=== PATIENT | female | born 2005 | race Caucasian/White ===

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

== ENCOUNTER 2023-06-04 11:06 | Outpatient (REF) | payer BC, SELFPAY ==
[2023-06-05 13:07] LABS: Chlamydia Result Negative (Negative); GC Result Negative (Negative)
== END 2023-06-04 11:07 | disposition home or self-care (01) ==
LOC: LBN 11:06
PROVIDERS: PCP Student in an Organized Health Care Education/Training Program; Visit Provider Nurse Practitioner Women's Health
DX: Z11.3 Encounter for screening for infections with a predominantly sexual mode of transmission (principal); R82.79 Other abnormal findings on microbiological examination of urine
CPT/HCPCS: 87491; 87591

== ENCOUNTER 2023-09-06 15:04 | Outpatient (REF) | payer BC, SELFPAY | END 2023-09-06 15:05 | disposition home or self-care (01) | LOC: LBN 15:04 | PROVIDERS: PCP Student in an Organized Health Care Education/Training Program; Visit Provider Nurse Practitioner Family | DX: J02.9 Acute pharyngitis, unspecified (principal) | CPT/HCPCS: 87077; 87070 ==

== ENCOUNTER 2024-07-21 14:03 | Outpatient (CLI) | payer BC, SELFPAY ==
--- NOTE | 2024-07-21 13:45 | DI.RAD_ITS ---
Exam(s) XR CHEST 2V PA LATERAL EXAM: XR CHEST 2V PA LATERAL CLINICAL HISTORY: eval pna, cough, R05.9. TECHNIQUE: 2D digital imaging was performed. COMPARISON: No exams were available for comparison FINDINGS: 2 views: Heart size is normal. The mediastinum is not widened. Lungs are clear. No infiltrates nor pleural effusions. IMPRESSION: No acute pulmonary findings. DATA REPOSITORY: RADIATION DOSE DELIVERED:
== END 2024-07-21 14:23 ==
LOC: DI 14:04
PROVIDERS: PCP Nurse Practitioner Family; Visit Provider Nurse Practitioner Family
DX: R05.9 Cough, unspecified (principal)
CPT/HCPCS: 71046

== ENCOUNTER 2024-08-03 14:15 | Emergency (ER) | payer BC, SELFPAY ==
--- NOTE | 2024-08-03 14:15 | DI.RAD_ITS ---
Exam(s) XR WRIST LT COMPLETE EXAM: XR WRIST LT COMPLETE CLINICAL HISTORY: pain s/p fall. TECHNIQUE: 2D digital imaging was performed. Three views. COMPARISON: No exams were available for comparison FINDINGS: BONES: No acute fracture is present. No bony destructive lesion is seen. JOINTS: The carpal bones are normally aligned. SOFT TISSUE: Mild soft tissue swelling. IMPRESSION: Mild soft tissue swelling. No evidence of fracture. DATA REPOSITORY: RADIATION DOSE DELIVERED:
[2024-08-03 14:16] VITALS: BP 124/75; PULSE 78; RESP 14; TEMP 36.8; O2SAT 97
--- NOTE | 2024-08-03 14:29 | ED.GENADUL_ITS ---
Discharge Plan Disposition Patient Disposition: Home Condition: Stable Discharge Details Clinical Impression: Left wrist sprain Primary Care Provider: Kevin Berrios ED Provider: Eliseo Crum Home Meds and New Rx's Prescriptions: Continued (DME) POCKET CHAMBER Spacer See Rx Instructions .ROUTE .MEDSUPPLY Qty: 1 0RF Rx Instructions: As directed sertraline 100 mg tablet 100 mg PO DAILY Qty: 90 1RF albuterol sulfate 90 mcg/actuation HFA aerosol inhaler 2 puff inhalation Q6H PRN (Reason: shortness of breath or wheezing) Qty: 8.5 0RF Discharge Instructions Additional Instructions: I do not see anything of concern on your x-ray. If the radiologist sees any broken bones I will call you. Wear the splint until pain-free. If you are not improving in a week follow-up with your primary care provider You can take 1000 mg of acetaminophen and 600 mg of ibuprofen every 6 hours as needed. If you feel more ill or have severe worsening pain return to the emergency department for reevaluation HPI General Mode of arrival: ambulatory . Date/Time Provider Initiated Documentation: 08/03/24 14:19 . Limitations to Documentation: no limitations . Information obtained by: patient . History of Present Illness 18 year old F presents to the emergency department with the chief complaint of left wrist pain s/p fall snowboarding, described as moderate, Quality is described as aching, and is localized to the left and upper extremity. Patient reports no radiation. Patient started experiencing this hour(s) (2) and it has been constant. Rest improves symptom(s), Movement worsens symptoms . Patient notes no other symptoms.. Patient did receive the following treatments prior to arrival, none Related Data Home Medications ?Medication ?Instructions ?Recorded ?Confirmed inhalational spacing device #1 ea 09/29/19 08/03/24 (POCKET CHAMBER spacer) sertraline 100 mg tablet 100 mg PO DAILY #90 tabs 05/26/24 08/03/24 albuterol sulfate 90 mcg/actuation 2 puff inhalation Q6H PRN 07/21/24 08/03/24 aerosol inhaler shortness of breath or wheezing #8.5 grams Previous Rx's ?Medication ?Instructions ?Recorded inhalational spacing device #1 ea 09/29/19 (POCKET CHAMBER spacer) sertraline 100 mg tablet 100 mg PO DAILY #90 tabs 05/26/24 albuterol sulfate 90 mcg/actuation 2 puff inhalation Q6H PRN 07/21/24 aerosol inhaler shortness of breath or wheezing #8.5 grams Allergies Allergy/AdvReac Type Severity Reaction Status Date / Time amoxicillin Allergy Intermediate RASH Verified 08/03/24 14:18 General Stated Complaint: Orthopedic ROSALBA: 4 Review of Systems All systems reviewed & are unremarkable except as noted in HPI and below Constitutional Constitutional: Denies chills, Denies fever(s) and Denies weakness Cardiovascular Cardiovascular: Denies chest pain and Denies dyspnea Respiratory Respiratory: Denies dyspnea Gastrointestinal Gastrointestinal: Denies abdominal pain, Denies nausea and Denies vomiting Neurologic Neurologic: Denies weakness Exam Const General: no acute distress Orientation: alert HENMT Head: normal to inspection Ears: external ears normal General nose exam: external nose normal Mouth: moist mucous membranes Eyes General: appearance normal, both eyes and all related structures Neck Neck: normal visual inspection Resp Effort & Inspection: normal respiratory effort and able to speak in complete sentences Cardio Rate: regular rate Skin General skin exam: no rashes or lesions noted Neuro General: patient alert and patient oriented x3 Extrem General: normal to inspection and capillary refill normal Psych Mental Status: mental status grossly normal Course Vital Signs Vital signs: Vital Signs Temperature 36.8 C 08/03/24 14:16 Pulse 78 08/03/24 14:16 Respiratory Rate 14 08/03/24 14:16 Blood Pressure 124/75 08/03/24 14:16 Pulse Oximetry 97 08/03/24 14:16 Temperature 36.8 C 08/03/24 14:16 Temperature Source Oral 08/03/24 14:16 Pulse 78 08/03/24 14:16 Respiratory Rate 14 08/03/24 14:16 Respiratory Effort Normal 08/03/24 14:19 Blood Pressure 124/75 08/03/24 14:16 Blood Pressure Position Sitting 08/03/24 14:16 Pulse Oximetry 97 08/03/24 14:16 Oxygen Delivery Method Room Air 08/03/24 14:16 Oxygen Flow Rate 0 08/03/24 14:16 Pain Level 5 08/03/24 14:16 Lab/Test Results Lab/Test Results: POC- Test(urine) Negative Medical Decision Making 18-year-old female who denies any significant past medical history comes in with left wrist pain after falling while snowboarding. She says she was wearing a helmet, lost control and fell landing on her left wrist. She had no loss of consciousness, she denies any head pain, neck pain, back pain, chest or abdomen pain. She localizes the pain to the left wrist on the radial surface. She has full range of motion of the wrist but with pain. There is no visible palpable deformity. No snuffbox tenderness. No pain to the hand or fingers with intact sensation and cap refill. Full obtain x-rays to evaluate for fracture. Patient's x-ray on my read is negative, will treat as a sprain with a wrist splint and advised to wear this until pain-free. Given the turnaround times over an hour, I will call her if they see anything of note. She will follow-up with her PCP in improving in a week. 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) Mild persistent asthma without complication (Acute 05/30/17) Coarctation of aorta (Acute 03/03/13) Bicuspid aortic valve (Acute 03/03/13) Medical History Dysmenorrhea COVID-19 virus infection (10/10/21) Concussion 06/13 Pneumonia Bronchiolitis Surgical History coarctation repair Family History Father Essential hypertension Hyperlipidemia Diabetes Hypertension Maternal Grandmother Neoplasm breast Breast cancer Essential hypertension Hyperlipidemia Maternal Grandfather Heart disease Diabetes Hyperlipidemia Hypertension Mother Hyperlipidemia Depression Sister Depression Paternal Grandmother Hypertension Paternal Grandfather Heart disease Social History Smoking/Tobacco Use Status: Never Second Hand Exposure: No Smoking risk assessment performed?: Yes Alcohol Intake: never Drug use: Never Substance use type: does not use Adopted: No Caregiver/Support person: No Foster care: No Household members: significant other Housing: house Number of Children: 0 Communication Needs: None Education Level: high school Do you need help understanding health information?: Never current occupation: banking management consulting manager Pets and animals: Yes Sexually active: Yes Do you think of yourself as: straight/heterosexual Current gender identity: female What is your relationship status?: living with partner How often do you talk on the phone with friends or family?: three or more times per week How often do you get together with friends or relatives?: once per week Do you belong to any clubs or organized social groups?: yes Panel score (0-1 are the most socially isolated patients): 3 What type of physical activity do you participate in: other Details: spin class Duration: 45-60 minutes/day Frequency: 1-2 times per week Myah/Bahai: Confucianism Special myah needs: No Agree to transfusion: Yes Seatbelt use: always Helmet use: Yes Helmet use: always Drive intox or ride w/intox local delivery driver: No Firearms in home: Yes Firearms unloaded and locked: Yes Do you feel safe at home: Yes Do you feel safe in your relationship?: Yes Female Reproductive History Menstrual Age of Menarche: 11 control method: condoms History History 0 Para Hx # Term Pregnancies Multiple births Hx # Pregnancies Ectopic pregnancies AB induced Hx Number of Living Children AB spontaneous
--- NOTE | 2024-08-03 15:40 | DI.VRAD_ITS ---
PROCEDURE INFORMATION: Exam: XR Left Wrist Exam date and time: 08/03/2024 2:35 PM Age: 18 years old Clinical indication: Injury or trauma; Other: Snowboarding accident; Blunt trauma (contusions or hematomas); Wrist; Left TECHNIQUE: Imaging protocol: Radiologic exam of the left wrist. Views: 3 or more views. COMPARISON: No relevant prior studies available. FINDINGS: Bones/joints: Bone mineralization is age-appropriate. There is no evidence of fracture. No evidence of dislocation. The joint spaces are adequately preserved; no significant degenerative narrowing and no bony erosion seen. Soft tissues: No radiopaque foreign body present. There is soft tissue swelling present. IMPRESSION: 1. No acute osseous abnormality. 2. There is soft tissue swelling present. Dictated and Authenticated by: Leonidas Burroughs MD. Ordering:JEREMY Gomes MD
== END 2024-08-03 15:15 | disposition home or self-care (01) ==
PROVIDERS: Emergency Provider Emergency Medicine; PCP Nurse Practitioner Family
DX: S63.502A Unspecified sprain of left wrist, initial encounter (principal); W00.0XXA Fall on same level due to ice and snow, initial encounter; Y93.23 Activity, snow (alpine) (downhill) skiing, snowboarding, sledding, tobogganing and snow tubing; Y92.838 Other recreation area as the place of occurrence of the external cause
CPT/HCPCS: 81025; 99284; 73110; 99283

== ENCOUNTER 2025-03-13 18:25 | Outpatient (REF) | payer OTHER, SELFPAY ==
[2025-03-13 21:06] LABS: HCT 44.4 % (36.0-46.0); HGB 15.0 g/dL (11.2-15.7); MCH 30.0 pg (27.0-33.0); MCHC 33.8 % (32.0-36.0); MCV 89 fL (80-95); MPV 10.9 fL (8.0-11.0); Platelet Count 352 10^3/uL (130-400); RBC 5.00 10^6/uL (3.93-5.22); RDW 11.9 % (11.7-14.6); RDW-SD 38.6 fL; WBC 12.38 10^3/uL (4.4-10.8)
[2025-03-13 21:22] LABS: Anion Gap 9.9 mmol/L (3-11); BUN 16 mg/dL (7-18); CO2 29.1 mmol/L (21.0-32.0); Calcium 9.5 mg/dL (8.5-10.1); Chloride 103 mmol/L (98-107); Estimated GFR 130.88 (mL/min/1.73m2); Glucose 108 mg/dL (74-106); Potassium 3.4 mmol/L (3.5-5.1); Sodium 142 mmol/L (136-145); TSH (W/Ref FT4) 1.16 uIU/mL (0.36-3.74)
[2025-03-14 10:32] LABS: Lab Add On Test DONE
[2025-03-14 10:49] LABS: Hemoglobin A1C 5.2 % (<5.7)
== END 2025-03-13 18:26 | disposition home or self-care (01) ==
LOC: LBN 18:25
PROVIDERS: PCP Nurse Practitioner Family; Visit Provider Nurse Practitioner Family
DX: F41.9 Anxiety disorder, unspecified (principal); R63.5 Abnormal weight gain; R73.9 Hyperglycemia, unspecified
CPT/HCPCS: 80048; 85027; 83036; 84443

== ENCOUNTER 2025-03-19 13:57 | Outpatient (REF) | payer OTHER, SELFPAY | END 2025-03-19 13:58 | disposition home or self-care (01) | LOC: LBN 13:57 | PROVIDERS: PCP Nurse Practitioner Family; Visit Provider Obstetrics & Gynecology | DX: R30.0 Dysuria (principal) | CPT/HCPCS: 87077; 87086; 87186 ==

== ENCOUNTER 2025-03-19 17:18 | Emergency (ER) | payer OTHER, SELFPAY ==
[2025-03-19 17:20] VITALS: BP 138/87; PULSE 90; RESP 14; TEMP 37.9; O2SAT 96
[2025-03-19 17:28] VITALS: BP 138/87; PULSE 90; RESP 14; TEMP 37.9; O2SAT 96
[2025-03-19 17:44] LABS: Glucose Negative (Negative)
[2025-03-19 18:00] LABS: Abs Immature Grans 0.07 10^3/uL (0.0-0.06); HCT 42.1 % (36.0-46.0); HGB 14.4 g/dL (11.2-15.7); Immature Grans % 0.4 %; MCH 29.9 pg (27.0-33.0); MCHC 34.2 % (32.0-36.0); MCV 87 fL (80-95); MPV 10.2 fL (8.0-11.0); Platelet Count 328 10^3/uL (130-400); RBC 4.82 10^6/uL (3.93-5.22); RDW 11.8 % (11.7-14.6); RDW-SD 37.6 fL; WBC 16.82 10^3/uL (4.4-10.8)
[2025-03-19] MEDS: Ibuprofen 600 MG TAB PO (18:00)
--- NOTE | 2025-03-19 18:00 | DI.CT_ITS ---
Exam(s) CT RENAL COLIC WO EXAM: CT RENAL COLIC WO CLINICAL HISTORY: R. flank and R. groin pain, recent UTI. TECHNIQUE: Imaging Protocol: Axial computed tomography images with coronal and sagittal reformatted images were created and reviewed. COMPARISON: No exams were available for comparison FINDINGS: ABDOMEN: Lung Bases: Normal where visualized. Liver: Normal density. No measurable mass. Gallbladder and biliary tract: Cholelithiasis. No biliary ductal dilatation. Pancreas: Normal density, no abnormal calcifications or inflammatory process. Spleen: Normal. Kidneys: Normal size, contour and axis.No radiodense stones or obstructive uropathy. No masses seen. Adrenal glands: No mass is seen. Lymph nodes: Within normal limits. Abdominal Aorta: Abdominal portion non-dilated. PELVIS: Bladder:Symmetric distention, no gross wall thickening. Bowel: No obstruction or bowel wall thickening. There is no evidence of appendicitis. Peritoneal cavity: No ascites, collection or mesenteric inflammatory response. No free air. Reproductive organs: There are bilateral ovarian cysts. The largest is on the left ovary and measures 2 cm. Bones: Within normal limits. There is left sided spondylolysis at L5 without spondylolisthesis. Soft Tissues: Within normal limits. IMPRESSION: 1. There is no evidence of nephrolithiasis or hydronephrosis. 2. Cholelithiasis. No biliary ductal dilatation or CT evidence to suggest acute cholecystitis. 3. No evidence of appendicitis. 4. Bilateral follicular ovarian cysts. The largest is on the left and measures 2 cm. RADIATION DOSE DELIVERED: 652.65mGy.cm Total DLP DATA REPOSITORY: All CT scans at this facility are submitted to the National Radiology Data Registry (NRDR) Dose Index Registry (DIR) with the [employer] (A[employer]). RADIATION OPTIMIZATION: All CT scans at this facility use at least one of these dose optimization techniques: automated exposure control; mA and/or kV adjustment per patient size (includes targeted exams where dose is matched to clinical indication); or iterative reconstruction.
[2025-03-19 18:07] LABS: C & S Indicated? Yes; RBC >50 HPF (0-2); WBC 20-50 HPF (0-5)
[2025-03-19 18:15] LABS: ALT 43 U/L (14-59); AST 20 U/L (15-37); Albumin 4.0 g/dL (3.4-5.0); Alkaline Phosphatase 90 U/L (46-116); Anion Gap 10.0 mmol/L (3-11); BUN 13 mg/dL (7-18); Bilirubin, Total 0.3 mg/dL (0.2-1.0); CO2 28.0 mmol/L (21.0-32.0); Calcium 9.4 mg/dL (8.5-10.1); Chloride 101 mmol/L (98-107); Estimated GFR 126.11 (mL/min/1.73m2); Glucose 99 mg/dL (74-106); Lipase 36 U/L (<78); Magnesium 1.9 mg/dL (1.8-2.4); Potassium 3.6 mmol/L (3.5-5.1); Sodium 139 mmol/L (136-145); Total Protein 8.0 g/dL (6.4-8.2)
--- NOTE | 2025-03-19 18:20 | ED.GENADUL_ITS ---
Discharge Plan Disposition Patient Disposition: Home Condition: Stable Discharge Details Clinical Impression: Pyelonephritis, Cholelithiasis, Cyst of left ovary Primary Care Provider: Kevin Berrios ED Provider: Pooja Nichols Home Meds and New Rx's Prescriptions: New cephalexin 500 mg capsule 500 mg PO QID 5 Days Qty: 20 0RF No Action (DME) POCKET CHAMBER Spacer See Rx Instructions .ROUTE .MEDSUPPLY Qty: 1 0RF Rx Instructions: As directed ceftriaxone 1 gram recon soln 1 g IM DAILY 1 Days Qty: 1 0RF cephalexin 500 mg capsule 500 mg PO Q8H 7 Days Qty: 21 0RF phenazopyridine [Pyridium] 200 mg tablet 200 mg PO Q8H Qty: 6 0RF albuterol sulfate 90 mcg/actuation HFA aerosol inhaler 2 puff inhalation Q6H PRN (Reason: shortness of breath or wheezing) Qty: 8.5 0RF omeprazole 20 mg capsule,delayed release(DR/EC) 20 mg PO DAILY Qty: 90 0RF sertraline 100 mg tablet 100 mg PO DAILY Qty: 90 1RF Discharge Instructions Instructions: Urinary Tract Infection, Adult ED Additional Instructions: You were seen in the emergency department today for evaluation of right flank pain in the setting of a recently diagnosed urinary tract infection. In our department had a full physical examination performed, had laboratory studies that showed some blood and signs of infection in your urine as well as an elevated white blood cell count. You had a CT scan that did not show any evidence of kidney stones or other abnormalities, and likely have a kidney infection. I have made some changes to your oral antibiotic regimen, and provided you with a prescription for the remainder of the medicines that you will need. Your new regimen is cephalexin, 500 mg 4 times per day (every 6 hours) for 10 days. Between my prescription and the one you got this morning and have already picked up you should have enough tablets to do that. Please t bill all of the medication until it is gone, even if you start to feel better. You should start this medication tomorrow morning when you wake up. You can continue to use the Pyridium for pain as well as Tylenol and ibuprofen. Please follow-up with your primary care provider in the next few days to discuss this visit and any symptoms that change, worsen, or persist. Thank you for allowing us to be part of your care. HPI General Mode of arrival: ambulatory . Date/Time Provider Initiated Documentation: 03/19/25 17:27 . Limitations to Documentation: no limitations . Information obtained by: patient, family and old records reviewed . HPI Narrative: This is a 19-year-old female patient with a past medical history significant for asthma, aortic coarctation, bicuspid aortic valve, and a recent diagnosis of urinary tract infection who is presenting for evaluation of right flank and abdominal pain. The patient reports that she started to develop urinary symptoms including dysuria and frequency on Sunday. She has never had a urinary tract infection before and tried managing her symptoms with [id number] medications without improvement. She was seen by her [facility] office today, and had a urinalysis concerning for infection. She received a dose of intramuscular ceftriaxone and a prescription for cephalexin, which she was supposed to take tomorrow but has already picked up. She was also provided with Pyridium for symptomatic management. This afternoon she reports that she developed right sided flank pain, and right groin pain. She was concerned about the new symptom and presented for evaluation. She has been tolerating oral intake, has not had nausea or vomiting, did have an episode of diarrhea without blood. Related Data Home Medications ?Medication ?Instructions ?Recorded ?Confirmed inhalational spacing device #1 ea 09/29/19 03/19/25 (POCKET CHAMBER spacer) albuterol sulfate 90 mcg/actuation 2 puff inhalation Q 6H PRN 07/21/24 03/19/25 aerosol inhaler shortness of breath or wheez ing #8.5 grams sertraline 100 mg tablet 100 mg PO DAILY #90 tabs 04/2003/19/25 omeprazole 20 mg capsule,delayed 20 mg PO DAILY #90 ca ps 03/13/25 03/19/25 release ceftriaxone 1 gram solution for 1 g IM DAILY 1 day #1 ea 03/19/25 03/19/25 injection cephalexin 500 mg capsule 500 mg PO Q8H 7 days #21 cap s 03/19/25 03/19/25 cephalexin 500 mg capsule 500 mg PO QID 5 days #20 cap s 03/19/25 phenazopyridine 200 mg tablet 200 mg PO Q8H 6 doses #6 tabs 03/19/25 03/19/25 (Pyridium) Previous Rx's ?Medication ?Instructions ?Recorded inhalational spacing device #1 ea 09/29/19 (POCKET CHAMBER spacer) albuterol sulfate 90 mcg/actuation 2 puff inhalation Q 6H PRN 07/21/24 aerosol inhaler shortness of breath or wheez ing #8.5 grams sertraline 100 mg tablet 100 mg PO DAILY #90 tabs 04/20 omeprazole 20 mg capsule,delayed 20 mg PO DAILY #90 ca ps 03/13/25 release ceftriaxone 1 gram solution for 1 g IM DAILY 1 day #1 ea 03/19/25 injection cephalexin 500 mg capsule 500 mg PO Q8H 7 days #21 cap s 03/19/25 cephalexin 500 mg capsule 500 mg PO QID 5 days #20 cap s 03/19/25 phenazopyridine 200 mg tablet 200 mg PO Q8H 6 doses #6 tabs 03/19/25 (Pyridium) Allergies Allergy/AdvReac Type Severity Reaction Status Date / Time amoxicillin Allergy Intermediate RASH Verified 03/19/25 17:28 General Stated Complaint: FlankPain ROSALBA: 3 Exam Narrative Exam Narrative: Gen: Awake and alert, in no apparent distress HEENT: Non-icteric sclera Neck: Supple Lungs: No apparent respiratory distress, normal respiratory effort. CV: Appears well perfused, strong distal pulses Abdomen: Non-distended, tenderness to palpation in the right groin and suprapubic region, no rigidity, rebound, or guarding. Right CVA tenderness is present MSK: Moves 4 extremities without apparent limitation in ROM Skin: Visualized skin without rashes, cyanosis. Neuro: Normal Gait, no obvious focal deficits or facial asymmetry. Speaks in full, clear sentences. Psych: Appropriate for situation. Course Vital Signs Vital signs: Vital Signs Temperature 37.9 C H 03/19/25 17:20 Pulse 90 03/19/25 17:20 Respiratory Rate 14 03/19/25 17:20 Blood Pressure 138/87 03/19/25 17:20 Pulse Oximetry 96 03/19/25 17:20 Temperature 37.9 C H 03/19/25 17:28 Temperature Source Oral 03/19/25 17:28 Pulse 90 03/19/25 17:28 Respiratory Rate 14 03/19/25 17:28 Blood Pressure 138/87 03/19/25 17:28 Blood Pressure Position Sitting 03/19/25 17:28 Pulse Oximetry 96 03/19/25 17:28 Oxygen Delivery Method Room Air 03/19/25 17:28 Oxygen Flow Rate 0 03/19/25 17:28 Pain Level 5 03/19/25 17:28 Lab/Test Results Lab/Test Results: 03/19/25 17:20 Urine - Reflex from Ua Urine Culture - Pending Laboratory Tests Range/Units 03/19/25 03/19/25 17:20 17:54 WBC (4.4-10.8) 10^3/uL 16.82 H RBC (3.93-5.22) 10^6/uL 4.82 Hgb (11.2-15.7) g/dL 14.4 Hct (36.0-46.0) % 42.1 MCV (80-95) fL 87 MCH (27.0-33.0) pg 29.9 MCHC (32.0-36.0) % 34.2 RDW (11.7-14.6) % 11.8 Plt Count (130-400) 10^3/uL 328 MPV (8.0-11.0) fL 10.2 Immature Gran % % 0.4 Neutrophils % % 61.5 Lymphocytes % % 28.1 Monocytes % % 8.0 Eosinophils % % 1.5 Basophils % % 0.5 Nucleated RBC % (0.0-0.3) % 0.0 Absolute Neutrophils (1.2-6.7) 10^3/uL 10.34 H Absolute Lymphocytes (1.2-3.4) 10^3/uL 4.73 H Absolute Monocytes (0.1-0.8) 10^3/uL 1.35 H Absolute Eosinophils (0.0-0.7) 10^3/uL 0.25 Absolute Basophils (0.0-0.2) 10^3/uL 0.08 Urine Color (Yellow) Yellow Urine Clarity (Clear) Clear Urine pH (5-8) 6.5 Ur Specific [place] (1.005-1.025) 1.025 Urine Protein (Neg-Trace) mg/dL >=300 H Urine Ketones (Negative) mg/dL Negative Urine Blood (Negative) Large H Urine Nitrite (Negative) Negative Urine Bilirubin (Negative) Negative Urine Urobilinogen (Up to 0.2) mg/dL 0.2 Ur Leukocyte Esterase (Negative) Trace H Urine RBC (0-2) HPF >50 H Urine WBC (0-5) HPF 20-50 H Ur Epithelial Cells (Negative) HPF Rare Urine Crystals (Negative) HPF Negative Urine Bacteria (Negative) HPF Many Urine Casts (Negative) LPF Negative Urine Mucus (Negative) Negative Urine Other (Negative) Rare Renal Ur Culture Indicated? Yes Urine Glucose (Negative) mg/dL Negative POC- Test(urine) Negative Medical Decision Making This is a 19-year-old female patient presenting for evaluation of right flank pain and right lower quadrant abdominal pain in the setting of a recently diagnosed urinary tract infection. My differential includes, but is not limited to, urinary pathology including UTI, nephrolithiasis. Also considered gastritis/PUD, gastroenteritis, pancreatitis, cholecystitis and gallbladder pathology, hepatitis, appendicitis, diverticulitis, small bowel obstruction. Considered mesenteric ischemia, aortic pathology, though this is less concerning based on the patient's history and physical exam. Considered ectopic , PID/TOA, ovarian cyst, ovarian torsion. We will obtain laboratory studies to include CBC, CMP, magnesium, urinalysis and [id number] test. Given the reassuring abdominal examination I feel that an indication for imaging would be the presence of hematuria which may represent infected stone. - I reviewed the patient's laboratory studies, which shows a leukocytosis to 16, no anemia or thrombocytopenia. Chemistry panel shows no electrolyte derangements, evidence of kidney dysfunction or liver disease. Lipase is low, but the urinalysis does show large blood and pyuria, and we obtained a Noncon CT abdomen pelvis with renal stone protocol. test negative. This was reviewed by myself as well as the radiologist, who notes no obstructive renal stones or other uropathy, a normal-appearing appendix, and an incidentally noted left ovarian cyst and presence of cholelithiasis. These findings were all shared with the patient, and given the concern for pyelonephritis I do feel it is reasonable to make some small changes to her cephalexin regimen. I provided her with enough additional tablets to be able to take 500 mg 4 times daily for the next 10 days. At this time, the patient has had a full medical evaluation and is safe for discharge to home. They are hemodynamically stable, ambulatory, and tolerating PO. They are understanding of the follow-up plan and return precautions. They left our facility without incident. 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) Mild persistent asthma without complication (Acute 05/30/17) Coarctation of aorta (Acute) Bicuspid aortic valve (Acute 03/03/13) Medical History Dysmenorrhea COVID-19 virus infection (10/10/21) Concussion 06/13 Pneumonia Bronchiolitis Surgical History coarctation repair Family History Father Essential hypertension Hyperlipidemia Diabetes Hypertension Maternal Grandmother Neoplasm breast Breast cancer Essential hypertension Hyperlipidemia Maternal Grandfather Heart disease Diabetes Hyperlipidemia Hypertension Mother Hyperlipidemia Depression Sister Depression Paternal Grandmother Hypertension Paternal Grandfather Heart disease Social History Smoking/Tobacco Use Status: Never Second Hand Exposure: No Smoking risk assessment performed?: Yes Alcohol Intake: never Drug use: Never Substance use type: does not use Adopted: No Caregiver/Support person: No Foster care: No Household members: significant other Housing: house Number of Children: 0 Communication Needs: None Education Level: high school Do you need help understanding health information?: Never current occupation: banking center manager Pets and animals: Yes Sexually active: Yes Do you think of yourself as: straight/heterosexual Current gender identity: female What is your relationship status?: living with partner How often do you talk on the phone with friends or family?: three or more times per week How often do you get together with friends or relatives?: once per week Do you belong to any clubs or organized social groups?: yes Panel score (0-1 are the most socially isolated patients): 3 What type of physical activity do you participate in: other Details: spin class Duration: 45-60 minutes/day Frequency: 1-2 times per week Myah/Rastafari: Gnosticist Special myah needs: No Agree to transfusion: Yes Seatbelt use: always Helmet use: Yes Helmet use: always Drive intox or ride w/intox tank wagon driver: No Firearms in home: Yes Firearms unloaded and locked: Yes Do you feel safe at home: Yes Do you feel safe in your relationship?: Yes Female Reproductive History Menstrual Age of Menarche: 11 control method: condoms History History 0 Para Hx # Term Pregnancies Multiple births Hx # Pregnancies Ectopic pregnancies AB induced Hx Number of Living Children AB spontaneous
[2025-03-19 18:23] VITALS: BP 132/74; PULSE 94; RESP 18; O2SAT 96
[2025-03-19 19:47] VITALS: BP 133/71; PULSE 70; TEMP 36.5; O2SAT 97
== END 2025-03-19 19:58 | disposition home or self-care (01) ==
PROVIDERS: Emergency Provider Emergency Medicine; PCP Nurse Practitioner Family
DX: N10 Acute pyelonephritis (principal); K80.20 Calculus of gallbladder without cholecystitis without obstruction; N83.02 Follicular cyst of left ovary
CPT/HCPCS: 36415; 80053; 81025; 83690; 87077; 99284; 74176; 81003; 81015; 83735; 85025; 87086; 87186

== ENCOUNTER 2025-08-04 11:25 | Outpatient (REF) | payer OTHER, SELFPAY ==
--- NOTE | 2025-08-04 11:15 | PAPFT_PTH ---
PATIENT: Jacinda Quiñones LOC: [facility] U#:[id number] AGE/SX: 19/F ROOM: RE08/04/[address]: Anai Crum NP : 2005 BED: DIS: 08/04/2025 SPEC #: [id number] RECD: 08/04/25 12:52 STATUS: MAJORHalley OWEN #: [id number] MONTY: 08/04/25 11:[address]: Anai Crum NP DEPT: [facility] Cytology RECD BY: Josefa Steele ENTERED: 08/04/25 12:53 SP TYPE: PAPFT OTHR DR: Kevin Chávez DNP Tissues: 1 - CX/ENDOCX FOR PAP SMEARS Procedures: PAP THIN PREP/[facility] Screening Comments: [id number]
== END 2025-08-04 11:26 | disposition home or self-care (01) ==
LOC: LBN 11:25
PROVIDERS: PCP Nurse Practitioner Family; Visit Provider Nurse Practitioner Women's Health
DX: Z12.4 Encounter for screening for malignant neoplasm of cervix (principal)
CPT/HCPCS: 88142